=== PATIENT | male | born 1975 | race Caucasian/White ===

== ENCOUNTER → 2023-02-06 | Emergency (ER) | payer BC ==
[~2023-02-06] VITALS: Ht 175.3 cm; Wt 92.6 kg
[~2023-02-06] MED LIST: ACETAMINOPHEN ES 500 MG TABLET ONE; IBUP-1953 PO; LIDOCAINE 1%-EPI 1:100,000 20 ML VIAL ONE; TDAP [DIPH/PERTUSSIS/TET] 0.5 ML VIAL IM ONE; TYL2T PO
[2023-02-06] MEDS: LIDOCAINE 1%-EPI 1:100,000 50 ML VIAL IJ ONE (12:00)
[2023-02-06] MEDS: ACETAMINOPHEN 325 MG TABLET PO ONE (13:14)
[2023-02-06] MEDS: TDAP [DIPH/PERTUSSIS/TET] 0.5 ML VIAL IM ONE (13:48)
[2023-02-06 13:51] VITALS: BP 119/78; TEMP 98; O2SAT 97
== END | disposition home or self-care (01) ==
LOC: ER 12:25
DX: S21.119A Laceration without foreign body of unspecified front wall of thorax without penetration into thoracic cavity, initial encounter (principal); W22.8XXA Striking against or struck by other objects, initial encounter; Y93.55 Activity, bike riding; Y92.89 Other specified places as the place of occurrence of the external cause; Y99.8 Other external cause status
CPT/HCPCS: 99283; 71045; 12002; 90471; 90715; J3490 ×2; A6403 ×2